=== PATIENT | female | born 1965 | race African-American/Black ===

== ENCOUNTER 2021-06-06 08:24 | Outpatient (CLI) | payer BC | END 2021-06-06 08:25 | disposition home or self-care (01) | LOC: SCSRAD 08:24 | PROVIDERS: ATTEND Physician Assistant | DX: M25.571 Pain in right ankle and joints of right foot (principal); M79.674 Pain in right toe(s); E83.52 Hypercalcemia; M19.071 Primary osteoarthritis, right ankle and foot; M77.31 Calcaneal spur, right foot | CPT/HCPCS: 36415; 82306; 83970 ==

== ENCOUNTER 2021-06-26 08:23 | Outpatient (CLI) | payer BC | END 2021-06-26 08:24 | disposition home or self-care (01) | LOC: BICMAMMO 08:23 | PROVIDERS: ATTEND Physician Assistant | DX: Z12.31 Encounter for screening mammogram for malignant neoplasm of breast (principal); Z80.3 Family history of malignant neoplasm of breast | CPT/HCPCS: 77063; 77067 ==

== ENCOUNTER 2024-07-04 08:41 | Outpatient (CLI) | payer BC | END 2024-07-04 08:42 | disposition home or self-care (01) | LOC: BICMAMMO 08:41 | PROVIDERS: ATTEND Physician Assistant | DX: Z12.31 Encounter for screening mammogram for malignant neoplasm of breast (principal); Z80.3 Family history of malignant neoplasm of breast | CPT/HCPCS: 77063; 77067 ==